=== PATIENT | female | born 1945 | race Caucasian/White ===

== ENCOUNTER → 2023-12-26 09:00 | Outpatient (REF) | payer MEDICARE, OTHER, SELFPAY | LOC: HWWDC 09:00 | PROVIDERS: ATTENDING PHYSICIAN Family Medicine | DX: Z12.31 Encounter for screening mammogram for malignant neoplasm of breast (principal) | CPT/HCPCS: 77063; 77067 ==

== ENCOUNTER → 2024-02-10 07:15 | Outpatient (REF) | payer MEDICARE, OTHER, SELFPAY | LOC: HWRAD 07:15 | PROVIDERS: ATTENDING PHYSICIAN Specialist; FAMILY PHYSICIAN Family Medicine | DX: N20.0 Calculus of kidney (principal) | CPT/HCPCS: 74018 ==

== ENCOUNTER → 2024-03-07 08:12 | Outpatient (REF) | payer MEDICARE, OTHER, SELFPAY | LOC: HWRAD 08:12 | PROVIDERS: ATTENDING PHYSICIAN Physician Assistant Medical; FAMILY PHYSICIAN Family Medicine | DX: Z13.6 Encounter for screening for cardiovascular disorders (principal) | CPT/HCPCS: 76770 ==

== ENCOUNTER → 2024-10-02 06:22 | Day surgery (SDC) | payer MEDICARE, OTHER, SELFPAY | LOC: GI 06:22 | PROVIDERS: ATTENDING PHYSICIAN Internal Medicine Gastroenterology | DX: R13.10 Dysphagia, unspecified (principal); R12 Heartburn; Q39.9 Congenital malformation of esophagus, unspecified; K31.7 Polyp of stomach and duodenum; K31.89 Other diseases of stomach and duodenum; K29.60 Other gastritis without bleeding; K31.A19 Gastric intestinal metaplasia without dysplasia, unspecified site | CPT/HCPCS: 43249; 43239; 88305; 88342 ==

== ENCOUNTER → 2024-11-15 06:41 | Outpatient (REF) | payer MEDICARE, OTHER, SELFPAY ==
[2024-11-15 10:29] LABS: % Basophils 0.9 % (0-2); % Eosinophils 4.7 % (0-6); % Immature Granulocytes 0.3 % (0-0.5); % Lymphocytes 24.2 % (20.5-51.1); % Monocytes 6.8 % (1.7-9.3); % Neutrophils 63.1 % (42.2-75.2); Absolute Basophils 0.1 10^3/uL (0-0.2); Absolute Eosinophils 0.4 10^3/uL (0-0.7); Absolute Lymphocytes 1.8 10^3/uL (1.2-3.4); Absolute Monocytes 0.5 10^3/uL (0.1-0.6); Absolute Neutrophils 4.7 10^3/uL (1.4-6.5); Hematocrit 38.3 % (37.0-47.0); Hemoglobin 12.3 g/dL (12.0-16.0); Mean Corp Hgb Conc. 32.1 g/dL (33.0-37.0); Mean Corpuscular Hgb 28.3 pg (27.0-31.0); Mean Corpuscular Volume 88.2 fL (81.0-99.0); Mean Platelet Volume 10.9 fL (7.4-10.4); Nucleated Red Blood Cells % 0 %; Platelet Count 270 10^3/uL (130-400); Red Blood Cell Count 4.34 10^6/uL (4.20-5.40); Red Cell Dist. Width 13.1 % (11.5-14.5); White Blood Cell Count 7.5 10^3/uL (4.8-10.8)
[2024-11-15 11:04] LABS: ALT (SGPT) 38 U/L (0-35); AST (SGOT) 36 U/L (14-36); Albumin 4.2 g/dl (3.5-5.0); Alkaline Phosphatase 69 U/L (38-126); Blood Urea Nitrogen 14 mg/dl (7-17); Calcium 10.5 mg/dl (8.4-10.2); Carbon Dioxide 30 mmol/L (22-30); Chloride 103 mmol/L (98-107); Glucose 95 mg/dl (70-99); HDL Cholesterol 69 mg/dl; LDL Cholesterol, Calculated 100 mg/dl; Potassium 4.2 mmol/L (3.5-5.1); Sodium 137 mmol/L (135-145); Total Bilirubin 0.6 mg/dl (0.2-1.3); Total Cholesterol 192 mg/dl (50-199); Total Protein 6.6 g/dl (6.3-8.2); Triglyceride 115 mg/dl (10-149); Very Low Density Lipoprotein 23 mg/dl (0-30); eGFR > 60.00
[2024-11-15 11:34] LABS: TSH 2.12 uIU/ml (0.47-4.68)
[2024-11-15 11:44] LABS: Glycohemoglobin (HgbA1c) 5.1 % (4.0-5.6)
== END ==
LOC: HWLAB 06:41
PROVIDERS: ATTENDING PHYSICIAN Family Medicine
DX: I10 Essential (primary) hypertension (principal); R73.02 Impaired glucose tolerance (oral); R00.1 Bradycardia, unspecified; M54.16 Radiculopathy, lumbar region; K21.9 Gastro-esophageal reflux disease without esophagitis
CPT/HCPCS: 36415; 80053; 80061; 83036; 84443; 85025

== ENCOUNTER → 2024-12-27 06:50 | Outpatient (REF) | payer MEDICARE, OTHER, SELFPAY | LOC: HWWDC 06:50 | PROVIDERS: ATTENDING PHYSICIAN Family Medicine | DX: Z12.31 Encounter for screening mammogram for malignant neoplasm of breast (principal) | CPT/HCPCS: 77063; 77067 ==

== ENCOUNTER 2025-04-16 16:08 | Emergency (ER) | payer MEDICARE, OTHER, SELFPAY ==
[2025-04-16 16:19] VITALS: BP 148/68
[2025-04-16 16:38] LABS: Hematocrit 38.4 % (37.0-47.0); Hemoglobin 12.8 g/dL (12.0-16.0); Mean Corp Hgb Conc. 33.3 g/dL (33.0-37.0); Mean Corpuscular Volume 87.3 fL (81.0-99.0); Nucleated Red Blood Cells % 0 %; Platelet Count 262 10^3/uL (130-400); Red Cell Dist. Width 13.0 % (11.5-14.5)
[2025-04-16 16:54] LABS: ALT (SGPT) 27 U/L (0-35); AST (SGOT) 56 U/L (14-36); Albumin 4.3 g/dl (3.5-5.0); Alkaline Phosphatase 52 U/L (38-126); Blood Urea Nitrogen 22 mg/dl (7-17); Calcium 10.8 mg/dl (8.4-10.2); Carbon Dioxide 27 mmol/L (22-30); Chloride 109 mmol/L (98-107); Glucose 128 mg/dl (70-99); Potassium 4.3 mmol/L (3.5-5.1); Sodium 140 mmol/L (135-145); Total Protein 7.1 g/dl (6.3-8.2); eGFR > 60.00
[2025-04-16 17:03] LABS: Troponin I < 0.012 ng/ml
[2025-04-16 17:41] VITALS: BP 132/72
[2025-04-16 17:49] VITALS: BMI 32.1
[2025-04-16 18:00] VITALS: BP 137/61
--- NOTE | 2025-04-16 18:45 | ED.GENMED ---
History of Present Illness
General
Chief Complaint: Chest Pain
Source: patient
Exam Limitations: none
Time Seen by Provider: 04/16/25 18:27
Nursing documentation reviewed up to this point in time: agreed with
History of Present Illness
History of Present Illness:
Patient is a 79-year-old female with history hypertension who presents the emergency department for evaluation of chest pain. Patient states that earlier today around 1230 she had a very transient episode of chest tightness that she was walking the
stairs however resolved almost immediately. She then states that around 3:30 PM after eating orange sherbet she was a tightness sensation in her chest. This time symptoms seem to linger prompting visit to the emergency department. She denies any
associated shortness of breath, lightheadedness/dizziness, diaphoresis, or nausea. She denies any radiation of pain into her back, jaw, or shoulder.
Patient did take aspirin prior to arrival.
By my assessment�patient states chest pain has resolved completely. She denies any other complaints at this time.
Patient has no past history of cardiac disease. She has only seen a certified nutritionist once in the past for a preop clearance.
Past History
Past History
ED Past Medical History: GERD, HTN and Other (parathyroid mass); Negative Arrthythmia, Asthma, CAD, Cancer, CHF, COPD or CVA
ED Past Surgical History: Cholecystectomy, Orthopedic and Other (Parathyroid)
Social History
Tobacco: Former smoker
Alcohol: Occasional
Drug: None
Personal:
Living: with family
Employment: Employed
Family History
Family History: Hypertension
Review of Systems
Review of Systems
Allergies reviewed?: Yes
All Other Systems: ROS reviewed and negative except as documented in HPI and ROS
Phy Exam
Physical Exam
Physical Exam:
Vitals: Mildly hypertensive, otherwise vital signs stable. Afebrile
General: Patient is well appearing, no acute distress
Skin: Warm and dry, no rashes or lesions
Head: Normocephalic, atraumatic
Eyes: Sclera nonicteric. EOMs intact. No nystagmus.
Throat: Protecting airway
Neck: Normal ROM, no cervical spine tenderness, no meningismus
Cardiac: Regular rate and rhythm, no murmurs. No reproducible chest wall tenderness
Pulm: Normal respiratory effort, no wheezes, rales, rhonchi heard on exam
.
Abdomen: Abdomen soft and nontender.
Extremities: No evidence of cyanosis or edema. Palpable DP pulses bilaterally
Neuro: AAOx3. Grossly intact.
Psychiatric: Normal affect.
Scores
Heart Score for Chest Pain Patients
STEMI patient?: No
History: Slightly or Non-Suspicious
ECG: Normal
Age: >/= 65 years
Risk Factors: 1 or 2 Risk Factors
Troponin: </= Normal Limit
Heart Score for Chest Pain Patients: 3
Heart Score Risk: 2.5% MACE over next 6 weeks
Course
Orders/Labs/Results
Orders:
Orders
04/16/25 16:09
EKG [Electrocardiogram (*1)] Urgent
Reason for Study: Chest Pain
EKG- Treatment ONCE
04/16/25 16:30
Complete Blood Count/With Diff Urgent
Comprehensive Metabolic Panel Urgent
Troponin I Urgent
04/16/25 18:46
CR Chest - 2 Views Urgent
Comment:
Reason For Exam: chest tightness
04/16/25 19:30
Electrocardiogram (*1) Urgent
Reason for Study: Chest Pain
EKG- Treatment ONCE
04/16/25 19:38
Troponin I Urgent
Abnormal Lab Results
04/16/25
16:30
MPV 10.5 H fL
(7.4-10.4)
Chloride 109 H mmol/L
(98-107)
BUN 22 H mg/dl
(7-17)
Glucose 128 H mg/dl
(70-99)
Calcium 10.8 H mg/dl
(8.4-10.2)
AST 56 H U/L
(14-36)
04/16/25 16:30
04/16/25 16:30
Vital Signs
Initial and Last Documented VS:
Initial Vital Signs
Temp Pulse Resp BP Pulse Ox
98.3 F 55 16 148/68 100
04/16/25 16:19 04/16/25 16:19 04/16/25 16:19 04/16/25 16:19 04/16/25 16:19
Last Documented Vital Signs
Temp Pulse Resp BP Pulse Ox
98.3 F 58 14 142/68 97
04/16/25 16:19 04/16/25 20:37 04/16/25 20:37 04/16/25 20:37 04/16/25 20:37
MDM/Problems Addressed
Differential Diagnosis Includes:
Not limited to: GERD, muscle strain, acute coronary syndrome, pericarditis, myocarditis, pneumonia, etc.
MDM/Problems Addressed:
79-year-old female presenting after episode of chest pain earlier today which has resolved prior to my evaluation. There was no associated shortness of breath, lightheadedness, nausea, diaphoresis. No associated back pain. Patient mildly
hypertensive on arrival, otherwise with stable vital signs. On exam�patient very well-appearing, no apparent distress. Heart regular rate and rhythm. Lungs clear bilaterally. Patient has 2+ palpable and equal radial pulses bilaterally with no
clinical evidence of DVT on exam. EKG obtained in triage shows normal sinus rhythm without any acute ischemic changes. Differential broad. Patient has no past history of CAD. No PE risk factors. Basic labs were sent prior to my initial
evaluation. CBC without clinically significant abnormalities. CMP with mild hypercalcemia and elevation AST, otherwise no significant findings. Troponin undetectable. Symptoms possibly secondary to acid reflux as patient states they started very
shortly after eating orange sherbet however given brief exertional component earlier today�will continue to trend troponin, repeat EKG to rule out acute coronary syndrome. Will check chest x-ray.
Update: EKG remains unchanged, nonischemic. Repeat troponin undetectable. Chest x-ray without acute findings. On reassessment�patient remains very well-appearing, in no apparent distress. She has remained chest pain-free since my initial
evaluation. Very low suspicion for acute coronary syndrome given negative troponin x 2 and nonischemic EKGs. However�given exertional chest tightness earlier today, while brief, and age�will place patient on chest pain hotline for cardiac
evaluation outpatient. Very strict return precautions discussed. Patient comfortable discharge home
Chronic conditions affecting care:
Hypertension
Acute Exacerbation and/or Progression of Chronic Illness:
Acutely hypertensive
*Radiology
Radiology exam reviewed: preliminary read by ED provider (Chest x-ray reviewed by me-no acute abnormalities) and radiology read reviewed
*Pulse Oximetry
SaO2: 99
Oxygen Mode of Delivery: Room air
Patient hypoxic: no
*EKG
Interpreted by ED Provider?: Yes
EKG Intrepretation Date: 04/16/25
Interpretation: abnormal
Comparison EKG: no changes
Heart Rate: 53
Rate: bradycardiac
Rhythm: sinus
[place]: left axis deviation
Interval: normal QT interval
QRS Pattern: normal QRS
Ischemia: no ischemia
*Steamer Tender Interpretation
Rate: normal
Interpretation: normal
Heart Rate: 60
Rhythm: sinus
*Critical Care Note
Total Time (30-74mins, 75-104mins- exclusive of procedures): Not Applicable
ED Attending Note
-
Portions of this chart may have been created with voice recognition software.� Occasional wrong word or��sound alike� substitutions may have occurred due to the inherent limitations of voice recognition software.
Discharge Plan
Departure
Patient Disposition: Home (Routine Discharge)
Date of Disposition: 04/16/25
Time of Disposition: 20:53
Patient with high blood pressure during this ER visit?: Yes
Condition: Good
Covid-19: Not Applicable
Discharge Problem:
Chest pain
Instructions: Chest pain - Discharge instructions, Chest Pain CBC Follow Up, BLOOD PRESSURE
Prescriptions:
No Action
multivitamin with folic acid [Tab-A-Mehul] 1 TABLET tablet
1 tab PO DAILY
tolterodine 4 MG capsule,extended release 24hr
4 mg PO DAILY
amlodipine 2.5 MG tablet
10 mg PO DAILY
omeprazole magnesium [Prilosec OTC] 20 MG tablet,delayed release (DR/EC)
20 mg PO DAILY
calcium phosphate-vitamin D3 1 EACH tablet,chewable
1 ea PO DAILY
Citrucel 500 MG tablet
500 mg PO BID PRN (Reason: constipation)
Glucosamine Sulf-Chondroitin 1 EACH capsule
1 cap PO DAILY
amitriptyline 10 MG tablet
10 mg PO HS
Vitamin D3:
1 tab PO DAILY
aspirin [Baby Aspirin] 81 mg Tablet,Chewable
81 mg PO DAILY
Referrals:
Lakhwinder Yeager MD [Family Provider, Family Practice]
Rin Lopez MD [Active, Cardiology] - Next open appointment
Activity Restrictions/Additional Instructions:
RETURN TO THE EMERGENCY DEPARTMENT WITH ANY CHEST PAIN, SHORTNESS OF BREATH/DIFFICULTY BREATHING, SEVERE BACK PAIN, CHEST PAIN WORSE WITH EXERTION, LIGHTHEADEDNESS, WORSENING OF CURRENT SYMPTOMS, OR ANY OTHER CONCERNS
- As discussed�your lab work showed no acute abnormalities. However�you did have a mildly elevated calcium level. Please have this repeated with your primary care to ensure trending down.
- Is important stay well hydrated and get plenty of rest.
- Follow-up with primary care/cardiology for further evaluation/management and to ensure that symptoms improve
Monitor your symptoms closely and return to the emergency department with any acute worsening/new symptoms or any other concerns
Interventions
Interventions:
*Risk Screen - Suicide Last Done: 04/16/25 16:22
*General Assessment Last Done: 04/16/25 17:49
*Neglect/Abuse Screening Last Done: 04/16/25 16:22
*ED- Fall Risk Assessment Last Done: 04/16/25 17:49
*ED COVID-19 Vaccine History Last Done: 04/16/25 17:49
*Nursing Disposition Last Done: 04/16/25 21:12
ED- Cardiac Assessment Last Done: 04/16/25 20:37
Discharge Date and Time
Discharge Date/Time: 04/16/25 21:12
Print Language: IRISH
[2025-04-16 19:00] VITALS: BP 133/69
[2025-04-16 20:13] LABS: Troponin I < 0.012 ng/ml
[2025-04-16 20:37] VITALS: BP 142/68
== END 2025-04-16 21:12 | disposition home or self-care (01) ==
LOC: EMR 16:08
PROVIDERS: Physician Assistant; Student in an Organized Health Care Education/Training Program; EMERGENCY PHYSICIAN Student in an Organized Health Care Education/Training Program; FAMILY PHYSICIAN Family Medicine
DX: R07.89 Other chest pain (principal); I10 Essential (primary) hypertension; K21.9 Gastro-esophageal reflux disease without esophagitis; K57.92 Diverticulitis of intestine, part unspecified, without perforation or abscess without bleeding; M19.90 Unspecified osteoarthritis, unspecified site; Z87.442 Personal history of urinary calculi; Z87.891 Personal history of nicotine dependence; Z90.49 Acquired absence of other specified parts of digestive tract; Z88.1 Allergy status to other antibiotic agents
CPT/HCPCS: 99284; 71046; 80053; 84484; 85025; 93005

== ENCOUNTER → 2025-06-10 07:14 | Outpatient (REF) | payer MEDICARE, OTHER, SELFPAY | LOC: HWRCS 07:14 | PROVIDERS: ATTENDING PHYSICIAN Student in an Organized Health Care Education/Training Program; FAMILY PHYSICIAN Family Medicine | DX: R07.2 Precordial pain (principal) | CPT/HCPCS: 93306 ==

== ENCOUNTER → 2025-06-18 08:32 | Outpatient (REF) | payer MEDICARE, OTHER, SELFPAY | LOC: HWRCS 08:32 | PROVIDERS: ATTENDING PHYSICIAN Student in an Organized Health Care Education/Training Program; FAMILY PHYSICIAN Family Medicine | DX: R07.2 Precordial pain (principal) | CPT/HCPCS: 78452; 93017; A9500; J2785 ==

== ENCOUNTER → 2025-09-17 07:24 | Outpatient (REF) | payer MEDICARE, OTHER, SELFPAY ==
[2025-09-17 08:38] LABS: HDL Cholesterol 69 mg/dl; LDL Cholesterol, Calculated 64 mg/dl; Very Low Density Lipoprotein 25 mg/dl (0-30)
== END ==
LOC: REG 07:24
PROVIDERS: ATTENDING PHYSICIAN Student in an Organized Health Care Education/Training Program; FAMILY PHYSICIAN Family Medicine
DX: R94.39 Abnormal result of other cardiovascular function study (principal); E66.9 Obesity, unspecified
CPT/HCPCS: 36415; 80061